=== PATIENT | female | born 1930 | race Two or more races ===

== ENCOUNTER 2018-10-15 09:07 | Outpatient (CLI) | payer OTHER ==
[2018-10-15] MEDS ORDERED: RANITIDINE HCL150 M1 PO (15:37)
[2018-10-15] MEDS ORDERED: METROPOLOL PO (15:38)
[2018-10-15] MEDS ORDERED: AMILODIPINE PO (15:38)
[2018-10-15] MEDS ORDERED: DIAZEPAM5 MG PO (15:39)
[2018-10-15] MEDS ORDERED: COZAAR100 MG PO (15:39)
== END 2018-10-15 16:35 | disposition home or self-care (01) ==
LOC: LAB 09:07 → EKG 09:07
DX: N95.0 Postmenopausal bleeding (principal); D64.89 Other specified anemias; Z01.818 Encounter for other preprocedural examination; R79.89 Other specified abnormal findings of blood chemistry; Z01.810 Encounter for preprocedural cardiovascular examination

== ENCOUNTER 2018-10-18 05:45 | Inpatient (IN) | payer OTHER ==
[~2018-10-18] VITALS: Ht 162.6 cm; Wt 40.8 kg
[~2018-10-18 05:45] MED LIST: AMILODIPINE PO; COZAAR100 MG PO; DIAZEPAM5 MG PO; METROPOLOL PO; RANITIDINE HCL150 M1 PO
[2018-10-18] MEDS ORDERED: METOPROLOL TART25 MG PO ×2 (08:17→08:18)
[2018-10-18] MEDS ORDERED: AMLODIPINE BESYL5 MG PO (08:17)
[2018-11-11] MEDS ORDERED: AMIODARONE HCL200 MG PO (09:51)
[2018-11-11] MEDS ORDERED: CARAFATE1 GM PO (09:56)
[2018-11-11] MEDS ORDERED: AMLODIPINE BESYL5 MG PO (09:56)
[2018-11-11] MEDS ORDERED: ATIVAN2 M1 PO (09:56)
[2018-11-11] MEDS ORDERED: PROTONIX40 MG PO (09:56)
== END 2018-11-11 15:10 | disposition home or self-care (01) | DRG 742 ==
LOC: O/R 05:45 → SURH 05:45 → RECOVERY 13:48 → SURH 19:27
PROVIDERS: Obstetrics & Gynecology Gynecologic Oncology; ADMIT Internal Medicine
PROC: 0UT70ZZ Resection of Bilateral Fallopian Tubes, Open Approach (ICD-10-PCS; 2018-10-18)
PROC: 0UT20ZZ Resection of Bilateral Ovaries, Open Approach (ICD-10-PCS; 2018-10-18)
PROC: 4A12X4Z Monitoring of Cardiac Electrical Activity, External Approach (ICD-10-PCS; 2018-10-18)
PROC: 0UT90ZZ Resection of Uterus, Open Approach (ICD-10-PCS; principal; 2018-10-18 07:00)
PROC: BW24YZZ Computerized Tomography (CT Scan) of Chest and Abdomen using Other Contrast (ICD-10-PCS; 2018-10-22)
PROC: B246ZZZ Ultrasonography of Right and Left Heart (ICD-10-PCS; 2018-10-22)
PROC: 3E0F7GC Introduction of Other Therapeutic Substance into Respiratory Tract, Via Natural or Artificial Opening (ICD-10-PCS; 2018-10-22)
PROC: 4A033R1 Measurement of Arterial Saturation, Peripheral, Percutaneous Approach (ICD-10-PCS; 2018-10-22)
PROC: 0DH67UZ Insertion of Feeding Device into Stomach, Via Natural or Artificial Opening (ICD-10-PCS; 2018-10-22)
PROC: BW4GZZZ Ultrasonography of Pelvic Region (ICD-10-PCS; 2018-10-24)
PROC: BW40ZZZ Ultrasonography of Abdomen (ICD-10-PCS; 2018-10-24)
PROC: 3E0336Z Introduction of Nutritional Substance into Peripheral Vein, Percutaneous Approach (ICD-10-PCS; 2018-10-24)
PROC: BW21Y0Z Computerized Tomography (CT Scan) of Abdomen and Pelvis using Other Contrast, Unenhanced and Enhanced (ICD-10-PCS; 2018-10-25)
PROC: 02HV33Z Insertion of Infusion Device into Superior Vena Cava, Percutaneous Approach (ICD-10-PCS; 2018-10-26)
PROC: 30233N1 Transfusion of Nonautologous Red Blood Cells into Peripheral Vein, Percutaneous Approach (ICD-10-PCS; 2018-11-02)
PROC: 0DNB0ZZ Release Ileum, Open Approach (ICD-10-PCS; 2018-11-05)
PROC: 0DTB0ZZ Resection of Ileum, Open Approach (ICD-10-PCS; 2018-11-05)
DX: N71.1 Chronic inflammatory disease of uterus (principal); J18.9 Pneumonia, unspecified organism; K91.31 Postprocedural partial intestinal obstruction; J98.11 Atelectasis; R18.8 Other ascites; I97.89 Other postprocedural complications and disorders of the circulatory system, not elsewhere classified; I47.1 Supraventricular tachycardia; E87.1 Hypo-osmolality and hyponatremia; E44.0 Moderate protein-calorie malnutrition; J90 Pleural effusion, not elsewhere classified; D62 Acute posthemorrhagic anemia; S36.428A Contusion of other part of small intestine, initial encounter; N72 Inflammatory disease of cervix uteri; D25.0 Submucous leiomyoma of uterus; N83.312 Acquired atrophy of left ovary; N83.311 Acquired atrophy of right ovary; I10 Essential (primary) hypertension; D72.828 Other elevated white blood cell count; R09.02 Hypoxemia; R50.82 Postprocedural fever; J47.9 Bronchiectasis, uncomplicated; Z88.0 Allergy status to penicillin; Z88.6 Allergy status to analgesic agent; R91.8 Other nonspecific abnormal finding of lung field; N73.6 Female pelvic peritoneal adhesions (postinfective); F43.20 Adjustment disorder, unspecified

== ENCOUNTER 2018-11-13 17:50 | Emergency (ER) | payer OTHER ==
[~2018-11-13] VITALS: Ht 149.9 cm; Wt 40.4 kg
[~2018-11-13 17:50] MED LIST changes: +AMIODARONE HCL200 MG PO; +AMLODIPINE BESYL5 MG PO; +ATIVAN2 M1 PO; +CARAFATE1 GM PO; +METOPROLOL TART25 MG PO; +PROTONIX40 MG PO
== END 2018-11-13 20:26 | disposition home or self-care (01) ==
LOC: ER 17:50
DX: R06.02 Shortness of breath (principal)

== ENCOUNTER 2019-02-08 12:24 | Emergency (ER) | payer OTHER ==
[~2019-02-08] VITALS: Ht 152.4 cm; Wt 45.4 kg
[2019-02-08] MEDS ORDERED: LOSARTAN POTAS100 MG PO (12:32)
== END 2019-02-08 14:24 | disposition home or self-care (01) ==
LOC: ER 12:24
DX: R53.81 Other malaise (principal); R00.2 Palpitations; F41.1 Generalized anxiety disorder; T42.4X5A Adverse effect of benzodiazepines, initial encounter; Y92.89 Other specified places as the place of occurrence of the external cause

== ENCOUNTER 2019-02-19 19:50 | Emergency (ER) | payer OTHER ==
[~2019-02-19] VITALS: Ht 152.4 cm; Wt 39.0 kg
[~2019-02-19 19:50] MED LIST changes: +LOSARTAN POTAS100 MG PO
== END 2019-02-19 23:45 | disposition home or self-care (01) ==
LOC: ER 19:50
DX: K29.60 Other gastritis without bleeding (principal)

== ENCOUNTER → 2019-11-10 | Emergency (ER) | payer OTHER ==
[~2019-11-10] VITALS: Ht 152.4 cm; Wt 47.6 kg
[~2019-11-10] MED LIST changes: +AMLODIPINE BESYL5 MG; +CEFDINIR300 MG PO; +DIAZEPAM2 MG; +LACTULOSE20 GM/30 M PO; +LASIX20 MG PO; +PEPCID AC10 MG; +PEPCID AC10 MG PO; +TENORMIN25 MG; +TENORMIN25 MG PO
== END | disposition left against medical advice (07) ==
LOC: ER 16:22
DX: Z53.20 Procedure and treatment not carried out because of patient's decision for unspecified reasons (principal)

== ENCOUNTER 2019-11-11 17:38 | Emergency (ER) | payer OTHER ==
[~2019-11-11] VITALS: Ht 152.4 cm; Wt 43.5 kg
[~2019-11-11 17:38] MED LIST changes: -CEFDINIR300 MG PO; -LACTULOSE20 GM/30 M PO; -LASIX20 MG PO; -PEPCID AC10 MG PO; -TENORMIN25 MG PO
[2019-11-12] MEDS ORDERED: AMLODIPINE BESYL5 MG PO (08:55)
[2019-11-12] MEDS ORDERED: LACTULOSE20 GM/30 M PO (08:55)
[2019-11-12] MEDS ORDERED: PEPCID AC10 MG PO (08:55)
[2019-11-12] MEDS ORDERED: CEFDINIR300 MG PO (08:55)
[2019-11-12] MEDS ORDERED: TENORMIN25 MG PO (08:55)
[2019-11-12] MEDS ORDERED: LOSARTAN POTAS100 MG PO (08:55)
[2019-11-12] MEDS ORDERED: DIAZEPAM5 MG PO (08:55)
[2019-11-12] MEDS ORDERED: LASIX20 MG PO (09:02)
== END 2019-11-12 09:36 | disposition home or self-care (01) ==
LOC: ER 17:38
DX: L03.116 Cellulitis of left lower limb (principal); L03.115 Cellulitis of right lower limb; R60.0 Localized edema; K59.09 Other constipation; N39.0 Urinary tract infection, site not specified; R30.0 Dysuria; D72.828 Other elevated white blood cell count; R10.84 Generalized abdominal pain

== ENCOUNTER 2020-07-24 13:04 | Emergency (ER) | payer OTHER ==
[~2020-07-24] VITALS: Ht 157.5 cm; Wt 43.1 kg
[~2020-07-24 13:04] MED LIST changes: +CEFDINIR300 MG PO; +LACTULOSE20 GM/30 M PO; +LASIX20 MG PO; +PEPCID AC10 MG PO; +TENORMIN25 MG PO
== END 2020-07-24 16:53 | disposition home or self-care (01) ==
LOC: ER 13:04
DX: S70.02XA Contusion of left hip, initial encounter (principal); W18.09XA Striking against other object with subsequent fall, initial encounter; Y93.89 Activity, other specified; Y92.018 Other place in single-family (private) house as the place of occurrence of the external cause; Y99.8 Other external cause status

== ENCOUNTER 2021-01-13 17:15 | Emergency (ER) | payer OTHER ==
[~2021-01-13] VITALS: Ht 162.6 cm; Wt 59.0 kg
== END 2021-01-14 16:02 | disposition left against medical advice (07) ==
LOC: ER 17:15
DX: K29.70 Gastritis, unspecified, without bleeding (principal); K59.09 Other constipation; R30.0 Dysuria; R10.13 Epigastric pain; K57.30 Diverticulosis of large intestine without perforation or abscess without bleeding; N13.39 Other hydronephrosis; N32.89 Other specified disorders of bladder